=== PATIENT | female | born 1955 | race Caucasian/White ===

== ENCOUNTER → 2017-02-18 | Outpatient (CLI) | payer OTHER ==
--- NOTE | 2017-02-18 12:23 | CT ---
PROCEDURE: Head HISTORY: DIZZINESS Indication: Same as above Comparison: None Technique: CT of the head was done without intravenous contrast was done in the orthogonal planes. This exam was performed according to our departmental dose-optimization program, which includes automated exposure control, adjustment of the mA and/or KV according to the patient's size and/or use of iterative reconstruction technique. FINDINGS: There is no intracranial hemorrhage, midline shift mass effect or acute focal infarct. If clinical concern exists regarding an acute ischemic/vascular pathology being responsible for patient's symptomatology, an MRI of the brain is more sensitive than the current study, in ruling out such a possibility. There is good raygoza/white matter differentiation. The ventricular system is normal. The mastoid air cells are unremarkable . The paranasal sinuses are unremarkable . There is no visualization of acute fractures involving the calvarium or the skull base. IMPRESSION: There is no acute intracranial abnormality. Electronically signed by: Alexi Meeks MD 02/18/2017 12:22 PM CDT
--- NOTE | 2017-02-18 12:30 | RAD ---
EXAM DESCRIPTION: Chest,2 Views CLINICAL HISTORY: ABN EKG COMPARISON: None available FINDINGS: The cardiomediastinal silhouette is unremarkable. There is no airspace consolidation or pleural effusion. The bronchovascular markings are within normal limits, and the lungs are not hyperinflated. There is no pneumothorax or acute fracture. IMPRESSION: Negative exam. Electronically signed by: Chilango Stauffer MD 02/18/2017 12:29 PM CDT
== END | disposition home or self-care (01) ==
LOC: LAB 11:12
PROVIDERS: ATTEND Nurse Practitioner Family
DX: R42 Dizziness and giddiness (principal)

== ENCOUNTER → 2017-10-14 | Outpatient (CLI) | payer OTHER ==
--- NOTE | 2017-10-14 11:19 | RAD ---
EXAM DESCRIPTION: Chest,2 Views CLINICAL HISTORY: COUGH COMPARISON: None available FINDINGS: The cardiomediastinal silhouette is unremarkable. There is no airspace consolidation or pleural effusion. The bronchovascular markings are within normal limits, and the lungs are not hyperinflated. There is no pneumothorax or acute fracture. IMPRESSION: Negative exam. Electronically signed by: Chilango Stauffer MD 10/14/2017 11:18 AM [facility]
== END | disposition home or self-care (01) ==
LOC: LAB.O 10:44
PROVIDERS: ATTEND Nurse Practitioner Family
DX: R05 Cough (principal)

== ENCOUNTER → 2018-04-17 | Outpatient (CLI) | payer OTHER ==
--- NOTE | 2018-04-17 12:08 | MRI ---
EXAM DESCRIPTION: Shoulder,Right: Magnetic Resonance Imaging. CLINICAL HISTORY: PAIN. Right shoulder. COMPARISON: None. TECHNIQUE: Multiplanar, high-field MRI, multiple sequences, without contrast, right shoulder. FINDINGS: Minimal edema in the distal supraspinatus tendon with minimal swelling but no definite tear. Minimal edema in the subacromion/subdeltoid bursa. More edema can be seen in the distal infraspinatus tendon and there is a possibility of a longitudinal tear in the distal tendon. Subcortical cystic changes in the posterior greater tuberosity abutting the tendon insertion. No significant atrophy in these muscles. Normal signal in the remaining tendons of the rotator cuff. Minimal effusion in the AC joint. Inferior aspect of the distal right clavicle with spur impressing on the musculotendinous junction of the supraspinatus. Minimal subchondral edema in the facets. Type I curvature of the lateral acromion with no downsloping. Coracoid ligaments are intact. Minimal fluid in the subcoracoid bursa with no loose bodies. Effusion in the glenohumeral joint. Small oval to linear loose bodies in the inferior recess. Subchondral cyst in the anterior superior quadrant of the glenoid fossa with irregularity of the overlying labrum. Series of small subchondral cysts in the superior aspect of posterior rim of glenoid fossa rim, and posterior aspect of superior glenoid. Cyst in the abutting labrum with labral enlargement and edema. Small linear laceration in the posterior aspect of the adjacent superior labrum. No subchondral lesions in the humeral head articular surface. Edema in the base of the bicipital labral anchor. Minimal edema in the long head biceps tendon as it courses into the bicipital groove. IMPRESSION: 1. Tendinopathy of the distal supraspinatus and infraspinatus tendons. No significant muscle atrophy. Minimal tendinopathy of the long head biceps tendon as it courses into the bicipital groove. 2. Hypertrophic changes on the undersurface of the distal clavicle with spur impressing on the musculotendinous junction of the supraspinatus. Subcoracoid bursitis. 3. Glenohumeral joint effusion with loose bodies in the inferior recess. 4. Osteochondral lesions in the anterior superior and posterosuperior quadrants of the glenoid rim with adjacent labral tears. Electronically signed by: Evaristo Comer MD 04/17/2018 12:06 PM CDT
== END ==
LOC: MRI 07:43
PROVIDERS: ATTEND Family Medicine
DX: M75.81 Other shoulder lesions, right shoulder (principal); M75.51 Bursitis of right shoulder; M25.411 Effusion, right shoulder

== ENCOUNTER → 2019-05-07 | Outpatient (CLI) | payer MEDICARE ==
--- NOTE | 2019-05-07 15:00 | CT ---
EXAM DESCRIPTION: Head CLINICAL HISTORY: CLOSED HEAD INJURY COMPARISON: CT head dated November 21, 2011. TECHNIQUE: Contiguous axial images through the head were obtained without intravenous contrast administration. Sagittal and coronal reconstructions were reviewed. FINDINGS: No evidence of acute major vascular territorial infarct or intraparenchymal hemorrhage. No intra-axial or extra-axial fluid collections are identified. No significant mass effect or midline shift. The ventricles and cisterns appear normal in caliber. The sella and suprasellar regions appear normal. The structures of the posterior fossa are intact. The globes are intact bilaterally. The visualized paranasal sinuses and mastoid air cells are well-aerated. Review of the bones demonstrates no gross instability. IMPRESSION: 1. No acute intracranial process. This exam was performed according to our departmental dose-optimization program, which includes automated exposure control, adjustment of the mA and/or kV according to patient size and/or use of iterative reconstruction technique. Electronically signed by: Juvenal Goss MD 05/07/2019 2:58 PM CDT
== END ==
LOC: RAD 14:14
PROVIDERS: ATTEND Family Medicine
DX: S09.90XA Unspecified injury of head, initial encounter (principal)

== ENCOUNTER → 2019-09-12 | Outpatient (CLI) | payer MEDICARE, OTHER ==
--- NOTE | 2019-09-12 09:53 | CT ---
EXAM DESCRIPTION: Abdomen/Pelvis w/wo Contrast CLINICAL HISTORY: 64 years Female, LUQ PAIN TECHNIQUE: This exam was performed according to our departmental dose-optimization program, which includes automated exposure control, adjustment of the mA and/or kV according to patient size and/or use of iterative reconstruction technique. COMPARISON: May 20, 2019 FINDINGS: Bilateral breast prostheses. Visualized lung bases are grossly unremarkable. The liver is unremarkable. No suspicious hepatic lesion. No biliary dilatation. The gallbladder is nondistended. The portal vein is patent. The spleen, pancreas and adrenal glands are unremarkable. No hydronephrosis. No urolithiasis. Symmetric renal parenchymal enhancement. No urothelial lesion identified. Unremarkable bladder. Scattered colonic diverticula. Acute uncomplicated diverticulitis in the splenic flexure of the colon best seen series 4 image 20. No fluid collection or free air. No evidence of bowel obstruction. Normal appendix. No adenopathy. No focal fluid collection. No free air. Normal caliber abdominal aorta. Left sacral insufficiency fractures again noted, with no significant displacement. There is extension into the left sacroiliac joint space. No extension into the neural foramen. No other acute or suspicious osseous abnormality is identified. IMPRESSION: 1. Acute uncomplicated diverticulitis at the splenic flexure of the colon. 2. Redemonstrated nondisplaced left sacral insufficiency fractures. Electronically signed by: Vargas Rojas MD 09/12/2019 9:51 AM CDT
== END ==
LOC: CT 08:10
PROVIDERS: ATTEND Surgery
DX: K57.92 Diverticulitis of intestine, part unspecified, without perforation or abscess without bleeding (principal); S32.10XA Unspecified fracture of sacrum, initial encounter for closed fracture

== ENCOUNTER → 2019-11-22 | Outpatient (CLI) | payer MEDICARE, OTHER ==
--- NOTE | 2019-11-22 10:51 | MRI ---
EXAM DESCRIPTION: Lumbar Spine w/o Contrast CLINICAL HISTORY: 64 years, Female, HIP PAIN. M25.559 COMPARISON: CT abdomen pelvis September 12, 2019 TECHNIQUE: Multiplanar multi sequence images of the lumbar spine were obtained without gadolinium contrast. FINDINGS: Vertebral body height and alignment are well maintained. Modic type I discogenic endplate signal changes at L1-2. The conus lies posterior to the L2 body, and the cauda equina is unremarkable. The paraspinal and visualized retroperitoneal soft tissues are unremarkable. T12-L1: No disc bulging or facet joint degeneration. L1-2: Disc desiccation and concentric disc bulging. No facet joint degeneration, left findings result in moderate to moderately advanced bilateral neuroforaminal stenosis. No central canal stenosis. L2-3: Less advanced concentric disc bulging without facet joint degeneration resulting in mild bilateral neural foraminal stenosis. L3-4: Concentric disc bulging without facet joint hypertrophy resulting in moderate bilateral neuroforaminal stenosis. No central canal stenosis. L4-5: Concentric disc bulging with mild bilateral facet joint degeneration and ligament flavum thickening resulting in moderate to moderately advanced bilateral neuroforaminal stenosis. Disc material approaches but only questionably abuts the exiting L4 nerve roots bilaterally. L5-S1: Concentric disc bulging with bilateral facet joint degeneration resulting in moderate to moderately advanced bilateral neuroforaminal stenosis, worse in the left side. Disc material approaches and possibly abuts the exiting L5 nerve roots bilaterally. No central canal stenosis. IMPRESSION: Moderate degenerative changes at multiple levels in the lumbar spine including degenerative disc disease with facet joint degeneration resulting in neuroforaminal stenosis at several levels as detailed above. Overall, findings are worse at L1-2, L4-5 and L5-S1. Electronically signed by: Chilango Stauffer MD 11/22/2019 10:50 AM [facility]
== END ==
LOC: MRI 07:00
PROVIDERS: ATTEND Nurse Practitioner Acute Care
DX: M51.36 Other intervertebral disc degeneration, lumbar region (principal); M48.061 Spinal stenosis, lumbar region without neurogenic claudication; M51.87 Other intervertebral disc disorders, lumbosacral region; M47.816 Spondylosis without myelopathy or radiculopathy, lumbar region

== ENCOUNTER → 2020-09-04 | Outpatient (CLI) | payer MEDICARE, OTHER ==
--- NOTE | 2020-09-06 13:34 | MRI ---
Study: MRI of the Right Hip. Indication: PAIN IN RIGHT HIP Technique: Multiplanar, multi sequence MRI of the right hip was obtained without intravenous contrast. Comparison: None Findings: Extensive grade 4 chondrosis and cortical remodeling of the anterior superior and superior aspects of the right hip joint with grade 3 chondral loss posteriorly. Multifocal subcortical cystic change anterior superior acetabulum. Tiny joint effusion. Tiny joint line osteophytes. No acute fracture or osteonecrosis. Degeneration throughout the right hip labrum. Severe pubic symphysis osteoarthritis. Tendinosis right gluteus minimus/medius tendon insertions with mild edema tracking along the right gluteus medius myotendinous junction. No high-grade tendon tear. Lower lumbar disc disease. Red marrow reconversion suspected throughout the pelvis. Impression: Moderate to severe right hip osteoarthritis without acute fracture or osteonecrosis. Additional findings as above. Electronically signed by: Rodger Rock MD 09/06/2020 1:32 PM CDT
== END ==
LOC: MRI 08:00
PROVIDERS: ATTEND Orthopaedic Surgery
DX: M16.11 Unilateral primary osteoarthritis, right hip (principal); M76.01 Gluteal tendinitis, right hip; M51.36 Other intervertebral disc degeneration, lumbar region; M24.151 Other articular cartilage disorders, right hip; M25.451 Effusion, right hip; M25.751 Osteophyte, right hip